=== PATIENT | female | born 1975 | race Caucasian/White ===

== ENCOUNTER 2024-06-10 21:09 | Emergency (ER) | payer OTHER ==
[2024-06-10 21:14] VITALS: BP 141/82; PULSE 76; RESP 17; TEMP 98.2; BMI 25.3
[2024-06-10] MEDS ORDERED: IBUPROFEN 600 MG TABLET (FP) PO ONE (21:37)
[2024-06-10] MEDS ORDERED: ACETAMINOPHEN 500 MG TABLET (FP) ONE (21:38)
[2024-06-10] MEDS: IBUPROFEN 600 MG TABLET (FP) PO ONE (21:43)
[2024-06-10] MEDS: ACETAMINOPHEN 500 MG TABLET (FP) PO ONE (21:43)
== END 2024-06-10 22:16 | disposition home or self-care (01) ==
LOC: JER 21:09 → JERFT 21:09
DX: S50.311A Abrasion of right elbow, initial encounter (principal); S80.212A Abrasion, left knee, initial encounter; M79.672 Pain in left foot; W10.1XXA Fall (on)(from) sidewalk curb, initial encounter; Y93.01 Activity, walking, marching and hiking
CPT/HCPCS: 73560-TC-LT-FY; 73630-TC-LT; 99284-25

== ENCOUNTER 2024-06-18 15:53 | Emergency (ER) | payer OTHER ==
[2024-06-18 16:12] VITALS: BP 121/76; PULSE 68; RESP 18; TEMP 98.5; BMI 24.2
[2024-06-18] MEDS ORDERED: CEPHALEXIN MONOHYDRATE 500 MG CAPSULE (UD) ONE (16:58)
[2024-06-18] MEDS: CEPHALEXIN MONOHYDRATE 500 MG CAPSULE (UD) PO ONE (16:58)
== END 2024-06-18 18:17 | disposition home or self-care (01) ==
LOC: JERFT 15:53
DX: S50.311A Abrasion of right elbow, initial encounter (principal); W01.0XXA Fall on same level from slipping, tripping and stumbling without subsequent striking against object, initial encounter
CPT/HCPCS: 73070-TC-RT-FY; 99283-25